=== PATIENT | female | born 2000 | race Caucasian/White ===

== ENCOUNTER 2023-11-14 01:48 | Emergency (ER) | payer OTHER, SELFPAY ==
[2023-11-14 01:48] VITALS: BMI 28.3
[2023-11-14 01:51] VITALS: BP 127/75
--- NOTE | 2023-11-14 01:59 | ED.GENMED ---
History of Present Illness
<GERARDO Matthews - Last Filed: 11/14/23 06:55>
General
Chief Complaint: Problems
Source: patient and family
Exam Limitations: none
Time Seen by Provider: 11/14/23 01:59
History of Present Illness
History of Present Illness:
23 year old female presents for evaluation of a problem. Pt endorses roughly 15 bouts of vomiting daily over the last week. She reports that she is approximately 6 weeks via an at-home test. Pt is seen for routine
gynecology visits at [facility], but has not yet been seen for her presumed , and has not confirmed the in office. No daily medications, vitamins, or supplements. Pt notes that she visited [facility]
earlier in the evening of 11/12 for her current sx, but left before being evaluated due to extensive wait time per pt. Pt was given a Zofran in the waiting room at [facility] but notes that she did not experience any symptom relief and vomited shortly
thereafter. Pt endorses significantly reduced appetite and oral intake with associated 6 pound weight loss over the last week. She also endorses associated chills but denies fever, vaginal discharge or bleeding, hematemesis, bloody stools, diarrhea,
dysuria, and hematuria. No SOB or CP reported.
Review of Systems
<GERARDO Matthews - Last Filed: 11/14/23 06:55>
Review of Systems
Allergies reviewed?: Yes
Constitutional: Reports weight loss and chills
Respiratory: Reports no symptoms
Cardiac: Reports no symptoms
ABD/GI: Reports nausea, vomiting and anorexia
: Reports no symptoms
Musculoskeletal: Reports no symptoms
Skin: Reports no symptoms
Neurological: Reports no symptoms
Endocrine: Reports no symptoms
Hematologic/Lymphatic: Reports no symptoms
Psychiatric: Reports no symptoms
Phy Exam
<GERARDO Matthews - Last Filed: 11/14/23 06:55>
General Physical Exam
General Presentation: moderate distress
General age: appears stated age
General Skin: warm
General Habitus: normal
General Mental: alert
General Hydration: dry mucous membranes
Cardiovascular Exam
Cardiovascular Exam: regular rate/rhythm and no murmur
Pulmonary Exam
Pulmonary Exam: lungs clear and no respiratory distress
Gastrointestinal Exam
Gastrointestinal Exam: other (hyperactive bowel sounds )
Neurological Exam
Neurological Exam: alert and oriented x3
Skin Exam
Skin Exam: normal color and warm/dry
Course
<Rajat Trinidad [facility] - Last Filed: 11/14/23 06:55>
Orders/Labs/Results
Orders:
Orders
11/14/23 02:20
0.9% Sodium Chloride 1000 ml [Nss] 1,000 ml IV BOLUS
Test Result ONCE
11/14/23 02:21
Metoclopramide [Reglan] 10 mg IV NOW STA
11/14/23 02:31
Beta HCG Quantitative Urgent
Comment: ADD ON
Complete Blood Count/With Diff Urgent
Comprehensive Metabolic Panel Urgent
HCG, Serum Qualitative Screen Urgent
11/14/23 02:48
Diphenhydramine [Benadryl] 25 mg IV NOW STA
11/14/23 03:39
Add On- LAB Urgent
Tests Added?: quantitative HCG
11/14/23 03:40
US W Transvaginal Urgent
Reason For Exam: abd pain, vomiting
11/14/23 04:09
0.9% Sodium Chloride 1000 ml [Nss] 1,000 ml IV BOLUS
11/14/23 06:08
Urinalysis Reflex To Culture Urgent
Specimen Description:
Date Specimen was Collected: 11/14/23
Time Specimen was Collected: 06:07
11/14/23 06:16
Ondansetron Injectable [Zofran] 4 mg IV NOW STA
Abnormal Lab Results
11/14/23
02:31
WBC 19.0 H 10^3/uL
(4.8-10.8)
Hct 35.7 L %
(37.0-47.0)
MCV 78.1 L fL
(81.0-99.0)
Abs Immat Gran (auto) 0.1 H 10^3/uL
(0-0.05)
Absolute Neuts (auto) 15.9 H 10^3/uL
(1.4-6.5)
Neutrophils % 83.7 H %
(42.2-75.2)
Lymphocytes % 11.6 L %
(20.5-51.1)
Carbon Dioxide 20 L mmol/L
(22-30)
Glucose 117 H mg/dl
(70-99)
11/14/23 02:31
11/14/23 02:31
Vital Signs
Initial and Last Documented VS:
Initial Vital Signs
Temp Pulse Resp BP Pulse Ox
98.4 F 76 16 127/75 98
11/14/23 01:51 11/14/23 01:51 11/14/23 01:51 11/14/23 01:51 11/14/23 01:51
Last Documented Vital Signs
Temp Pulse Resp BP Pulse Ox
98.5 F 93 18 99/60 98
11/14/23 02:00 11/14/23 04:00 11/14/23 04:00 11/14/23 04:35 11/14/23 04:35
<Ricarda Nevarez, DO - Last Filed: 11/14/23 06:50>
Orders/Labs/Results
Orders:
Orders
11/14/23 02:20
0.9% Sodium Chloride 1000 ml [Nss] 1,000 ml IV BOLUS
Test Result ONCE
11/14/23 02:21
Metoclopramide [Reglan] 10 mg IV NOW STA
11/14/23 02:31
Beta HCG Quantitative Urgent
Comment: ADD ON
Complete Blood Count/With Diff Urgent
Comprehensive Metabolic Panel Urgent
HCG, Serum Qualitative Screen Urgent
11/14/23 02:48
Diphenhydramine [Benadryl] 25 mg IV NOW STA
11/14/23 03:39
Add On- LAB Urgent
Tests Added?: quantitative HCG
11/14/23 03:40
US W Transvaginal Urgent
Reason For Exam: abd pain, vomiting
11/14/23 04:09
0.9% Sodium Chloride 1000 ml [Nss] 1,000 ml IV BOLUS
11/14/23 06:08
Urinalysis Reflex To Culture Urgent
Specimen Description:
Date Specimen was Collected: 11/14/23
Time Specimen was Collected: 06:07
11/14/23 06:16
Ondansetron Injectable [Zofran] 4 mg IV NOW STA
Abnormal Lab Results
11/14/23
02:31
WBC 19.0 H 10^3/uL
(4.8-10.8)
Hct 35.7 L %
(37.0-47.0)
MCV 78.1 L fL
(81.0-99.0)
Abs Immat Gran (auto) 0.1 H 10^3/uL
(0-0.05)
Absolute Neuts (auto) 15.9 H 10^3/uL
(1.4-6.5)
Neutrophils % 83.7 H %
(42.2-75.2)
Lymphocytes % 11.6 L %
(20.5-51.1)
Carbon Dioxide 20 L mmol/L
(22-30)
Glucose 117 H mg/dl
(70-99)
11/14/23 02:31
11/14/23 02:31
Vital Signs
Initial and Last Documented VS:
Initial Vital Signs
Temp Pulse Resp BP Pulse Ox
98.4 F 76 16 127/75 98
11/14/23 01:51 11/14/23 01:51 11/14/23 01:51 11/14/23 01:51 11/14/23 01:51
Last Documented Vital Signs
Temp Pulse Resp BP Pulse Ox
98.5 F 93 18 99/60 98
11/14/23 02:00 11/14/23 04:00 11/14/23 04:00 11/14/23 04:35 11/14/23 04:35
Information
Weeks gestation: Weeks: (6 weeks, 6 days)
Location: Location: (IUP)
<GERARDO Matthews - Last Filed: 11/14/23 06:55>
MDM/Problems Addressed
Differential Diagnosis Includes:
N/V of , hyperemesis gravidarum, gastroenteritis, colitis, cystitis, pyelonephritis.
<GERARDO Matthews - Last Filed: 11/14/23 06:55>
*Critical Care Note
Total Time (30-74mins, 75-104mins- exclusive of procedures): Not Applicable
<Ricarda Nevarez DO - Last Filed: 11/14/23 06:50>
*Radiology
Radiology exam reviewed: radiology read reviewed
*Pulse Oximetry
Patient hypoxic: no
<GERARDO Matthews - Last Filed: 11/14/23 06:55>
Update Note
Update Note:
11/14/2023 06:27 - U/S showing single live intrauterine gestation (6 weeks 6 days gestational age) and small 1.7 cm subchorionic hemorrhage.
ED Attending Note
<GERARDO Matthews - Last Filed: 11/14/23 06:55>
-
Portions of this chart may have been created with voice recognition software.� Occasional wrong word or��sound alike� substitutions may have occurred due to the inherent limitations of voice recognition software.
<Ricarda Nevarez DO - Last Filed: 11/14/23 06:50>
ED Attending Note
Patient seen and examined by attending physician: Yes
I performed the substantive portion of visit, reviewed & personally made and approve the management plan that is documented in note by myself or TIMOTEO.: Yes
ED Attending Note:
This is a 23-year-old female 2 para 0-0-1-0 with last menstrual period the very beginning of September, positive home test. She presents with at least a 1 week history of recurrent nausea and vomiting, much worse over the past 24 hours
reports multiple episodes of bilious vomiting. Intermittent upper abdominal discomfort more so with vomiting. She believes she has lost several pounds this week. She denies fever nor chills, no diarrhea or constipation, no vaginal discharge nor
bleeding.
She does have a warehouse order puller in [facility]. Has not had an initial visit as yet.
She takes no medicines on a daily basis.
She was sitting for a number of hours at [facility], had been given Zofran ODT in the waiting room without improvement in nausea. Due to extended wait, she left prior to physician evaluation and presented to this ED.
GENERAL: 23-year-old female appears her stated age, awake and alert, appears in mild to moderate distress, intermittently retching into an emesis basin. Parents are accompanying.
EYE: pupils equal and round. Anicteric
NECK: Supple, nontender, no meningismus, no significant adenopathy.
ENT: posterior pharynx is clear, oral mucosa is mildly dry. No rhinorrhea.
CARDIAC: Regular rate and rhythm. no murmur.
LUNGS: Clear breath sounds bilaterally, no acute respiratory distress, no wheezes/rales/rhonchi
ABDOMEN: Soft, nondistended, without focal tenderness, no r/g, no cvat. normoactive BS. No palpable masses.
NEUROLOGICAL: Alert and oriented x3, no focal neuro deficits. Gait is steady.
SKIN: Warm and dry, normal color, skin intact. No rash.
MUSCULOSKELETAL: No C/C/E. peripheral pulses are full and equal b/l. No palpable tenderness.
PSYCH: Normal and appropriate interaction.
Concern for hyperemesis gravidarum, concern for electrolyte abnormality, acute kidney injury.
Will initiate IV fluids and given IV dose of Reglan.
Will check labs, urinalysis, hCG and if positive quantitive hCG.
To consider ultrasound.
11/14/2023 0649 AM
Patient feeling markedly improved after IV Reglan and IV fluids. Mild return of nausea thus has been given an IV dose of Zofran with resolution of nausea, tolerating oral fluids well.
Labs show moderately elevated white blood cell count, likely reactive in nature. She remains afebrile.
Chemistries show a minimal metabolic acidosis with CO2 of 20. Normal BUN and creatinine, otherwise normal electrolytes. Normal glucose.
Ultrasound shows single IUP at 6 weeks 6 days, consistent with dates.
Will discharge to home with prescription for oral Reglan for as needed nausea. Recommend she continue with clear liquids, soft foods and prompt follow-up with her warehouse order puller for recheck.
Discharge Plan
Departure
Patient Disposition: Home (Routine Discharge)
Date of Disposition: 11/14/23
Time of Disposition: 06:42
Patient with high blood pressure during this ER visit?: No
Condition: Good
Discharge Problem:
Hyperemesis arising during , First trimester
Instructions: Hyperemesis Gravidarum (DC)
Prescriptions:
New
metoclopramide HCl [Reglan] 5 mg tablet
5 mg PO QIDPRN PRN (Reason: nausea and vomiting) Qty: 30 0RF
Referrals:
NONE,* [Family Provider] -
Activity Restrictions/Additional Instructions:
Call your warehouse order puller today to schedule follow-up appointment.
Interventions
Interventions:
*Risk Screen - Suicide Last Done: 11/14/23 01:51
*General Assessment Last Done: 11/14/23 02:38
*Neglect/Abuse Screening Last Done: 11/14/23 01:51
*ED COVID-19 Vaccine History Last Done: 11/14/23 02:40
ED-Female Genitourinary Assessment Last Done: 11/14/23 02:37
Discharge Date and Time
Print Language: PARAGUAYAN
[2023-11-14 02:00] VITALS: BP 125/72
[2023-11-14 02:21] VITALS: BP 125/72
[2023-11-14] MEDS: NSS 1000 IV ×2 (02:32→04:34)
[2023-11-14] MEDS: REGLAN 10 MG IV (02:35)
[2023-11-14 02:42] LABS: % Basophils 0.3 % (0-2); % Eosinophils 0.5 % (0-6); % Immature Granulocytes 0.5 % (0-0.5); % Lymphocytes 11.6 % (20.5-51.1); % Monocytes 3.4 % (1.7-9.3); % Neutrophils 83.7 % (42.2-75.2); Absolute Basophils 0.1 10^3/uL (0-0.2); Absolute Eosinophils 0.1 10^3/uL (0-0.7); Absolute Immature Granulocytes 0.1 10^3/uL (0-0.05); Absolute Lymphocytes 2.2 10^3/uL (1.2-3.4); Absolute Monocytes 0.6 10^3/uL (0.1-0.6); Absolute Neutrophils 15.9 10^3/uL (1.4-6.5); Hematocrit 35.7 % (37.0-47.0); Hemoglobin 13.2 g/dL (12.0-16.0); Mean Corpuscular Hgb 28.9 pg (27.0-31.0); Mean Corpuscular Volume 78.1 fL (81.0-99.0); Nucleated Red Blood Cells % 0 %; Platelet Count 349 10^3/uL (130-400); Red Blood Cell Count 4.57 10^6/uL (4.20-5.40); Red Cell Dist. Width 12.1 % (11.5-14.5)
[2023-11-14] MEDS: BENADRYL 25 MG IV (02:50)
[2023-11-14 03:03] LABS: HCG, Serum Qualitative Screen Positive
[2023-11-14 03:05] LABS: ALT (SGPT) 16 U/L (0-35); AST (SGOT) 26 U/L (14-36); Alkaline Phosphatase 87 U/L (38-126); Blood Urea Nitrogen 10 mg/dl (7-17); Calcium 10.1 mg/dl (8.4-10.2); Carbon Dioxide 20 mmol/L (22-30); Chloride 105 mmol/L (98-107); Estimated Creatinine Clearance > 125 ml/min; Glucose 117 mg/dl (70-99); Potassium 3.6 mmol/L (3.5-5.1); Sodium 139 mmol/L (135-145); Total Bilirubin 0.7 mg/dl (0.2-1.3); Total Protein 7.8 g/dl (6.3-8.2); eGFR > 60.00
[2023-11-14 04:00] VITALS: BP 99/60
[2023-11-14 04:35] VITALS: BP 99/60
[2023-11-14] MEDS: ZOFRAN 4 MG IV (06:23)
[2023-11-14 06:57] VITALS: BP 99/60
[2023-11-14 07:43] LABS: Urine Albumin Trace (Neg - Trace); Urine Bilirubin 1+ (Negative); Urine Character Clear (Clear); Urine Color Yellow; Urine Glucose Negative (Negative); Urine Ketone 3+ (Negative); Urine Leukocyte Negative (Negative); Urine Nitrite Negative (Negative); Urine Occult Blood Negative (Negative); Urine Urobilinogen Negative (Neg - 1+)
== END 2023-11-14 06:58 | disposition home or self-care (01) ==
LOC: EMR 01:48
PROVIDERS: EMERGENCY PHYSICIAN Emergency Medicine
DX: O21.1 Hyperemesis gravidarum with metabolic disturbance (principal); Z3A.01 Less than 8 weeks gestation of pregnancy; O26.891 Other specified pregnancy related conditions, first trimester; O20.8 Other hemorrhage in early pregnancy; R63.4 Abnormal weight loss; R68.83 Chills (without fever); R10.9 Unspecified abdominal pain
CPT/HCPCS: 99284; 96374; 96375 ×2; 96361 ×5; 76801; 76817; 80053; 81003; 84702; 84703; 85025

== ENCOUNTER 2023-11-17 19:00 | Observation (INO) | payer OTHER, SELFPAY ==
[2023-11-17] VITALS (7 sets, daily range): BP systolic 105–120; BP diastolic 60–81; BMI 24.9; BMI 25.9
--- NOTE | 2023-11-17 11:32 | EDRN ---
Roxy PÉREZ in room w/ pt at this time.
--- NOTE | 2023-11-17 11:43 | ED.GENMED ---
History of Present Illness
General
Chief Complaint: Problems
Source: patient
Exam Limitations: none
Time Seen by Provider: 11/17/23 11:27
Nursing documentation reviewed up to this point in time: agreed with
History of Present Illness
History of Present Illness:
23-year-old female G2, P1 approximately 7 and half weeks confirmed on ultrasound presents for vomiting in . Patient says she was seen here on 7�22 for the symptoms and was given IV Reglan after which she had extraparametal side
effects treated with Benadryl, she was given oral Reglan to take at home but did not really tolerate it well. She had previous Zofran which she has taken 2-3 times a day but at this point she is vomiting immediately after and does not know if she
is absorbing any. Patient says she has not been able to keep any food down, she is able to sometimes keep sips of water down but she feels generally weak and constantly nauseous. Patient has not tried Diclegis. Her first OB appointment was
already with a practice in [place] but she is looking to change. She was not unable to get an appointment until November
She is not having any vaginal bleeding or pelvic pain, urinary symptoms or fever.
Past History
Past History
ED Past Medical History: None
ED Past Surgical History: None
Social History
Tobacco: Non-smoker
Alcohol: None
Drug: None
Personal: Single
Living: with family
Review of Systems
Review of Systems
Allergies reviewed?: Yes
All Other Systems: Not applicable
Phy Exam
Physical Exam
Physical Exam:
GENERAL: Alert , crying tears
EYE: pupils equal and reactive
NECK: Supple
ENT: o/p clr, mmm.
CARDIAC: Regular rate and rhythm . No murmur
LUNGS: Clear breath sounds bilaterally, no acute respiratory distress, no wheezes/rales/rhonchi
ABDOMEN: Soft, without focal tenderness, no r/g, no cvat, normal bowel sounds
NEUROLOGICAL: Alert and oriented, no focal neuro deficits
SKIN: Warm and dry, skin intact.
MUSCULOSKELETAL: No edema, well perfused. neg anuradha's sign
PSYCH: Normal and appropriate interaction.
Course
Orders/Labs/Results
Orders:
Orders
11/17/23 11:29
IV Insert/Care/Rem.- Treatment PRN
Test Result ONCE
11/17/23 11:41
Ondansetron Injectable [Zofran] 4 mg IV NOW STA
11/17/23 11:44
Ondansetron Injectable [Zofran] 4 mg .ROUTE .[facility]
11/17/23 12:00
Comprehensive Metabolic Panel Urgent
Magnesium Urgent
TSH Reflex To Free T4 Urgent
Comment: ADD ON
Dextrose 5%/0.9%Sodchl 1000 ml [D5/0.9% Sodium Chloride] 1,000 ml IV Wide Open mls/hr
11/17/23 12:02
Complete Blood Count/With Diff Urgent
11/17/23 12:04
Urinalysis Reflex To Culture Urgent
Date Specimen was Collected: 11/17/23
Time Specimen was Collected: 12:03
Urine Microscopic Reflex Cult Urgent
11/17/23 12:57
0.9% Sodium Chloride 1000 ml [Nss] 1,000 ml IV BOLUS
Ondansetron Injectable [Zofran] 4 mg IV NOW STA
11/17/23 13:02
0.9% Sodium Chloride 1000 ml [Nss] 1,000 ml IV BOLUS
11/17/23 13:21
Potassium Chloride [KCl] 20 meq 0.9% Sodium Chloride 250 ml [Nss] 250 ml IV NOW
11/17/23 15:28
Add On- LAB Urgent
Tests Added?: tsh reflex t4
11/17/23 16:00
Urinalysis Reflex To Culture Urgent
Date Specimen was Collected: 11/17/23
Time Specimen was Collected: 15:58
11/17/23 16:50
Electrocardiogram (*1) Urgent
Reason for Study: Chest Pain
EKG- Treatment ONCE
Famotidine [Pepcid] 20 mg IV NOW STA
CR Chest - 2 Views Urgent
Comment:
Reason For Exam: vomiting, severe pain
11/17/23 17:00
Dextrose 5%/Lactringers 1000ML [D5lr] 1,000 ml IV 1,000 mls/hr
11/17/23 18:31
Admit/Transfer Patient As Directed
Co-Sign Provider:
Level of Care: Observation services
Assign to:: Medical/Surgical
Physician / Group: [facility]
Diagnosis: hyperemesis
11/17/23 18:34
Code Status As Directed
Resuscitation Status: Full Code
11/17/23 18:41
Calcium Carbonate Ex [Tums Ex (Extra Strength) Chewable] 2 tablet PO Q4HPRN PRN
11/17/23 19:00
Dextrose 5%/Lactringers 1000ML [D5lr] 1,000 ml Mvi, Adult [Multivitamin] 10 ml IV 125 mls/hr
Dextrose 5%/Lactringers 1000ML [D5lr] 1,000 ml IV Wide Open mls/hr
11/18/23 03:10
Dextrose 5%/Lactringers 1000ML [D5lr] 1,000 ml IV 125 mls/hr
Abnormal Lab Results
11/17/23 11/17/23 11/17/23
12:00 12:02 12:04
WBC 20.4 H 10^3/uL
(4.8-10.8)
Plt Count 439 H D 10^3/uL
(130-400)
Abs Immat Gran (auto) 0.1 H 10^3/uL
(0-0.05)
Absolute Neuts (auto) 17.7 H 10^3/uL
(1.4-6.5)
Absolute Monos (auto) 1.0 H 10^3/uL
(0.1-0.6)
Immature Gran % 0.6 H %
(0-0.5)
Neutrophils % 86.5 H %
(42.2-75.2)
Lymphocytes % 7.7 L %
(20.5-51.1)
Potassium 3.4 L mmol/L
(3.5-5.1)
Chloride 97 L mmol/L
(98-107)
Glucose 109 H mg/dl
(70-99)
Calcium 10.4 H mg/dl
(8.4-10.2)
Total Protein 8.5 H g/dl
(6.3-8.2)
Albumin 5.6 H g/dl
(3.5-5.0)
Urine Ketones 3+ A
(Negative)
Urine Bilirubin 1+ A
(Negative)
Leukocyte Esterase Rfl Trace A
(Negative)
Urine Bacteria (Reflex) Few A
(Negative)
11/17/23
16:00
WBC
Plt Count
Abs Immat Gran (auto)
Absolute Neuts (auto)
Absolute Monos (auto)
Immature Gran %
Neutrophils %
Lymphocytes %
Potassium
Chloride
Glucose
Calcium
Total Protein
Albumin
Urine Ketones 3+ A
(Negative)
Urine Bilirubin
Leukocyte Esterase Rfl
Urine Bacteria (Reflex)
11/17/23 12:02
11/17/23 12:00
Vital Signs
Initial and Last Documented VS:
Initial Vital Signs
Temp Pulse Resp BP Pulse Ox
98.5 F 98 16 120/81 99
11/17/23 10:44 11/17/23 10:44 11/17/23 10:44 11/17/23 10:44 11/17/23 10:44
Last Documented Vital Signs
Temp Pulse Resp BP Pulse Ox
98.5 F 76 16 114/62 100
11/17/23 10:44 11/17/23 17:15 11/17/23 17:15 11/17/23 17:15 11/17/23 17:15
Information
Weeks gestation: Weeks: (7)
Location: Location: (Intrauterine)
MDM/Problems Addressed
Differential Diagnosis Includes:
hyperemesis, electrolyte disturbance
MDM/Problems Addressed:
23-year-old approximately 7 weeks with IUP confirmed 3 days ago here for hyperemesis. Patient cannot keep any fluids down. She is constantly retching. There is been flecks of blood in her sputum and emesis sometimes. She has not
had any large-volume bleeding. Patient says she feels generally weak and tired. She is not having any vaginal symptoms, bleeding, pelvic pain, focal abdominal pain. On exam she did not appear overly dehydrated but was having episodes of clear
emesis, sometimes saliva that she would spit up and other times was retching with gastric secretions. Patient had no abdominal tenderness. She has had a leukocytosis previously 3 days ago of 19,000 and it was essentially unchanged at 20,000 today.
Patient's potassium was 3.4, magnesium was normal, her bicarb was normal. Patient did have 3+ ketones in her urine which appeared does also appear contaminated. She was given a liter of D5 normal, a total of 8 mg of Zofran, and a second and third
liter of normal saline. She was continuing to vomit through that. I spoke with Dr. krueger from [facility] who did recommend Diclegis as an outpatient or potentially setting the patient up for IV hydration at home. However patient began complaining of
pretty significant dyspepsia, feeling of burning and discomfort in her chest. Given her leukocytosis I felt the benefit outweighed the risk of a chest x-ray to be sure there was no pneumomediastinum. Her chest x-ray was independently reviewed and
negative. Patient's EKG is also unremarkable, her QTc is 440. Dr. Krueger saw her and we will observe her overnight for IV hydration
*Critical Care Note
Total Time (30-74mins, 75-104mins- exclusive of procedures): Not Applicable
ED Attending Note
-
Portions of this chart may have been created with voice recognition software.� Occasional wrong word or��sound alike� substitutions may have occurred due to the inherent limitations of voice recognition software.
Discharge Plan
Departure
Patient Disposition: Admit
Date of Disposition: 11/17/23
Time of Disposition: 16:58
Admit to: Med/Surg
Admit to doctor: evans
Presentation/result/management discussed w/ accepting MD/DO: evans
Patient with high blood pressure during this ER visit?: No
Condition: Fair
Covid-19: Not Applicable
Discharge Problem:
Hyperemesis gravidarum, Dyspepsia
Interventions
Interventions:
*Risk Screen - Suicide Last Done: 11/17/23 12:13
*General Assessment Last Done: 11/17/23 10:44
*Neglect/Abuse Screening Last Done: 11/17/23 12:13
ED- Fall Risk Assessment Last Done: 11/17/23 12:13
*ED COVID-19 Vaccine History Last Done: 11/17/23 10:44
ED-Female Genitourinary Assessment Last Done: 11/17/23 12:13
[2023-11-17] MEDS: D5/0.9% SODIUM CHLORIDE 1000 IV (11:57)
[2023-11-17] MEDS: ZOFRAN 4 MG IV ×3 (11:58→19:54)
[2023-11-17 12:16] LABS: Urine Albumin Trace (Neg - Trace); Urine Bilirubin 1+ (Negative); Urine Character Clear (Clear); Urine Color Yellow; Urine Glucose Negative (Negative); Urine Ketone 3+ (Negative); Urine Leukocyte Trace (Negative); Urine Nitrite Negative (Negative); Urine Occult Blood Negative (Negative); Urine Specific Gravity 1.025 (<1.030); Urine Urobilinogen 1+ (Neg - 1+)
[2023-11-17 12:17] LABS: % Basophils 0.3 % (0-2); % Immature Granulocytes 0.6 % (0-0.5); % Lymphocytes 7.7 % (20.5-51.1); % Monocytes 4.9 % (1.7-9.3); % Neutrophils 86.5 % (42.2-75.2); Absolute Basophils 0.1 10^3/uL (0-0.2); Absolute Immature Granulocytes 0.1 10^3/uL (0-0.05); Absolute Lymphocytes 1.6 10^3/uL (1.2-3.4); Absolute Neutrophils 17.7 10^3/uL (1.4-6.5); Hematocrit 43.6 % (37.0-47.0); Hemoglobin 15.8 g/dL (12.0-16.0); Mean Corp Hgb Conc. 36.2 g/dL (33.0-37.0); Mean Corpuscular Hgb 29.4 pg (27.0-31.0); Mean Corpuscular Volume 81.2 fL (81.0-99.0); Mean Platelet Volume 9.3 fL (7.4-10.4); Nucleated Red Blood Cells % 0 %; Platelet Count 439 10^3/uL (130-400); Red Blood Cell Count 5.37 10^6/uL (4.20-5.40); Red Cell Dist. Width 12.2 % (11.5-14.5); White Blood Cell Count 20.4 10^3/uL (4.8-10.8)
[2023-11-17 12:22] LABS: Urine Mucus Moderate; Urine Squamous Cell 16-20 /LPF (Few)
[2023-11-17 12:23] LABS: Urine Bacteria Few (Negative); Urine Red Blood Cell 0-2 /HPF (0-2)
[2023-11-17 12:30] LABS: ALT (SGPT) 19 U/L (0-35); AST (SGOT) 25 U/L (14-36); Albumin 5.6 g/dl (3.5-5.0); Alkaline Phosphatase 87 U/L (38-126); Blood Urea Nitrogen 10 mg/dl (7-17); Calcium 10.4 mg/dl (8.4-10.2); Carbon Dioxide 27 mmol/L (22-30); Chloride 97 mmol/L (98-107); Estimated Creatinine Clearance 99 ml/min; Glucose 109 mg/dl (70-99); Magnesium 2.1 mg/dl (1.6-2.3); Potassium 3.4 mmol/L (3.5-5.1); Sodium 138 mmol/L (135-145); Total Bilirubin 0.9 mg/dl (0.2-1.3); Total Protein 8.5 g/dl (6.3-8.2); eGFR > 60.00
[2023-11-17] MEDS: NSS 1000 IV ×2 (13:06→13:50)
--- NOTE | 2023-11-17 13:13 | EDRN ---
Pharmacist called and will get potassium rider 20 meq KCl at this time.
--- NOTE | 2023-11-17 13:13 | EDRN ---
Pt still having nausea at this time.
[2023-11-17] MEDS: KCL 260 MEQ IV (13:42)
--- NOTE | 2023-11-17 15:05 | EDRN ---
Pt states nausea has returned and is vomiting again.
--- NOTE | 2023-11-17 15:07 | EDRN ---
Roxy PÉREZ called and said she will speak to OB-MANAGER STUDIO about pt's return on N/V at this time.
--- NOTE | 2023-11-17 15:39 | EDRN ---
Roxy Hairston spoke to OB-COSTUME RENTAL CLERK Dr. Arevalo and need another urine test and Roxy Hairston PA said okay for pt to try juarez rodri and ice chips which were administered at this time. Pt informed that a second urine spec is needed as well.
[2023-11-17 16:13] LABS: Urine Albumin Negative (Neg - Trace); Urine Bilirubin Negative (Negative); Urine Character Clear (Clear); Urine Color Yellow; Urine Glucose Negative (Negative); Urine Ketone 3+ (Negative); Urine Leukocyte Negative (Negative); Urine Nitrite Negative (Negative); Urine Occult Blood Negative (Negative); Urine Specific Gravity 1.015 (<1.030); Urine Urobilinogen Negative (Neg - 1+)
--- NOTE | 2023-11-17 16:45 | EDRN ---
Roxy Hairston PA in to see pt. Pt to be admitted.
[2023-11-17] MEDS: PEPCID 20 MG IV (17:10)
--- NOTE | 2023-11-17 17:15 | EDRN ---
Addendum entered by Jenny Mercedes RN 11/17/23 18:20:
Not Dr. Arevalo but Dr. Villagran.
Original Note:
Dr. Arevalo in to see pt at this time.
[2023-11-17 17:20] LABS: TSH Reflex To Free T4 0.68 uIU/ml (0.47-4.68)
--- NOTE | 2023-11-17 17:30 | EDRN ---
Pt eating slowly small bag of crackers at this time. pt given her second cup of ice chips. Pt did not drink juarez rodri.
[2023-11-17] MEDS: D5LR 1000 IV (18:16)
--- NOTE | 2023-11-17 18:20 | EDRN ---
Pt is in room eating crackers from small bag still. Pt has coca cola bottle in room and when asked said that HCP said it had helped them when and that person had had hyperemesis gravidarum.
--- NOTE | 2023-11-17 18:20 | EDRN ---
Dr. Villagran in room w/pt at this time.
--- NOTE | 2023-11-17 18:21 | EDRN ---
Pt requesting private room w/ pharmacist in charge notified as well as admissions. Pt stating she will leave if she is assigned a semi-private room due to anxiety of hospital stay.
--- NOTE | 2023-11-17 18:28 | EDRN ---
Dr. Villagran is writing orders at this time.
--- NOTE | 2023-11-17 18:40 | EDRN ---
Pt requested an apple sauce to try and eat that was brought to her room at this time.
--- NOTE | 2023-11-17 19:06 | HP.FOC2 ---
Focused History & Physical
Chief Complaint
HPI:
Chief Complaint: 23 yo at 7 wks presents to ER for the 2nd time for intractable vomiting. desired [facility] observed in er for several hours and ketones remain 3+
HPI / Indication for Planned Procedure:
Relevant Past Medical History: Negative and Other (blood type O neg, denies pap, denies gardasil)
Relevant Social History: Negative
Relevant Family History: Positive for (pat aunt colon ca, pat gm lung ca, no fh breast, ov ut ca)
Relevant Past Surgical History: Positive for (El ab)
Review of Systems
Review of Pertinent Systems: All Systems Negative Except for the Following Positives (anxiety, severe no meds, no therapy)
Medication
See Medication form for detailed medications: No
Medication List (including Herbals & OTC):
No Meds [No Current Medications] 11/17/23
Allergies and Reactions
Patient has Allergies: No
Noted Allergies and Reactions:
Allergy/AdvReac Type Severity Reaction Status Date / Time
No Known Allergies Allergy Verified 11/17/23 10:47
Pertinent Physical Exam
All Other Systems: Negative
Head/Neck: Normal
Lungs: Normal
Heart: Normal
Abdomen: Normal
Extremities: Normal
Diagnosis / Assessment
7+ wks
hyperemesis gravidarum
Plan / Procedure
admit obs for ivf
iv zofran, phenergan prn
advance diet as tolerated
one amp PNV in d5 LR
check ua for ketones in am
leucocytosis: cxr neg
US reviewed: fht confirmed. subchorionic bleed reviewed. no vaginal bleeding
if unable to roni pos, unable to clear ketones t/c home iv rx
face to face time 25 min
[2023-11-17] MEDS: MULTIVITAMIN 1010 ML IV (19:55)
--- NOTE | 2023-11-17 20:10 | PTCARENOTE ---
Pt received from ED to rm [id number]. Pt oriented to room and call cary.
[2023-11-17] MEDS: PHENERGAN 50.5 MG IV (21:04)
[2023-11-18] MEDS: D5LR 1000 IV (04:14)
[2023-11-18] MEDS: PHENERGAN 50.5 MG IV (06:26)
[2023-11-18 06:49] LABS: Urine Albumin Negative (Neg - Trace); Urine Bilirubin Negative (Negative); Urine Character Clear (Clear); Urine Color Yellow; Urine Glucose Negative (Negative); Urine Ketone Negative (Negative); Urine Leukocyte Negative (Negative); Urine Nitrite Negative (Negative); Urine Occult Blood Negative (Negative); Urine Urobilinogen Negative (Neg - 1+)
[2023-11-18 07:35] VITALS: BP 104/59
[2023-11-18] MEDS: ZOFRAN 4 MG IV (09:52)
--- NOTE | 2023-11-18 10:44 | W.PN.OBG.DWH ---
Today's Communication / Plan
-
dc home
Recommend follow up with OB office
Assessment/Plan
-
7 wks
hyperemesis-significantly improved and patient requesting discharge home
Subjective Data
-
Pt requesting discharge. Reports feeling better and wants to go home.
Abdias clears and regular food
Ate [employer] hashbrowns and breakfast sandwich this am and tolerated.
[place] better after Iv promethazine
Objective Data
-
Laboratory Results
11/17/23 12:02
11/17/23 12:00
Vital Signs
Temp Pulse Resp BP Pulse Ox
98.1 F 81 16 104/59 99
11/18/23 07:35 11/18/23 07:35 11/18/23 07:35 11/18/23 07:35 11/18/23 07:35
VSS afeb
Urine ketone neg
--- NOTE | 2023-11-18 11:27 | PTCARENOTE ---
Discharge order placed. IV site removed. Discharge instructions reviewed with patient. No further questions. Pt ambulated from hospital with mother.
--- NOTE | 2023-11-18 14:09 | CM ---
Chart reviewed and patient is independent with adl's and ambulation, no dme, plan is to home today no needs.
Plan; Home no needs.
== END 2023-11-18 11:31 | disposition home or self-care (01) ==
LOC: 4 WEST ACU 19:00
PROVIDERS: Physician Assistant; ADMITTING PHYSICIAN Obstetrics & Gynecology; EMERGENCY PHYSICIAN Emergency Medicine
DX: O21.0 Mild hyperemesis gravidarum (principal); Z3A.01 Less than 8 weeks gestation of pregnancy; O99.891 Other specified diseases and conditions complicating pregnancy; O26.891 Other specified pregnancy related conditions, first trimester; R07.9 Chest pain, unspecified; R53.1 Weakness; R10.13 Epigastric pain; Z80.0 Family history of malignant neoplasm of digestive organs; Z80.1 Family history of malignant neoplasm of trachea, bronchus and lung
CPT/HCPCS: 71046; 80053; 81003; 81015; 83735; 84443; 85025; 86850; 86900; 86901; 87070; 93005; 96361; 96365; 96366; 96375; 96376; 99285; G0378

== ENCOUNTER 2025-01-13 13:11 | Emergency (ER) | payer OTHER, SELFPAY ==
[2025-01-13 13:44] LABS: Hematocrit 38.0 % (37.0-47.0); Hemoglobin 12.5 g/dL (12.0-16.0); Mean Corp Hgb Conc. 32.9 g/dL (33.0-37.0); Mean Corpuscular Volume 75.8 fL (81.0-99.0); Nucleated Red Blood Cells % 0 %; Platelet Count 387 10^3/uL (130-400); Red Cell Dist. Width 13.0 % (11.5-14.5)
[2025-01-13 13:47] LABS: HCG, Serum Qualitative Screen Negative
[2025-01-13 14:02] LABS: Blood Urea Nitrogen 13 mg/dl (7-17); Calcium 9.6 mg/dl (8.4-10.2); Carbon Dioxide 18 mmol/L (22-30); Chloride 104 mmol/L (98-107); Glucose 97 mg/dl (70-99); Sodium 139 mmol/L (135-145); eGFR > 60.00
[2025-01-13] MEDS: DECADRON 10 MG IV (15:03)
[2025-01-13] MEDS: TORADOL 15 MG IV (15:04)
--- NOTE | 2025-01-13 15:09 | ED.GENMED ---
History of Present Illness
General
Chief Complaint: Throat Problem
Time Seen by Provider: 01/13/25 13:40
History of Present Illness
History of Present Illness:
24-year-old female presents to the emergency department for evaluation of not improving pharyngitis for the past week. Initially developed symptoms 8 days ago and was seen at urgent care, diagnosed with strep but positive rapid strep test. She
returned 3 days later after antibiotics are not providing any benefit that she was switched from amoxicillin to clindamycin. She also reportedly had COVID, flu, and mono testing done that was negative. She was also given an injection of Kenalog.
She has been compliant with the clindamycin and followed up again with her urgent care 2 days ago due to worsening symptoms. Continues on clindamycin at this time. She does note that she is concerned for possible infidelity and wonders whether an
STD could be causing her symptoms. She has had intermittent fevers and difficulty swallowing as well
Past History
Past History
ED Past Medical History: None
ED Past Surgical History: None
Social History
Tobacco: Non-smoker
Alcohol: None
Drug: None
Personal: Single
Living: with family
Review of Systems
Review of Systems
Allergies reviewed?: Yes
All Other Systems: ROS reviewed and negative except as documented in HPI and ROS
Phy Exam
Physical Exam
Physical Exam:
GEN: Well appearing, NAD, WDWN
HEENT: Oral mucosa moist, no scleral icterus, significant exudates in the oropharynx as well as tonsils, no significant tonsillar hypertrophy, no palatal petechiae, no uvular deviation or soft palate mass, no stridor or phonation, positive cervical
adenopathy bilaterally
Cardiac: Tachycardic, regular
Lung: No respiratory distress, no tachypnea
MSK: No gross deformity or injuries
Skin: Good color, no pallor or jaundice, no rashes
Neuro: AO x3, moves all extremities freely
Psych: Calm, cooperative
Course
Orders/Labs/Results
Orders:
Orders
01/13/25 13:22
Electrocardiogram (*1) Urgent
Reason for Study: Other
Other Reason for Exam: Possible Sepsis
IV Insert/Care/Rem.- Treatment PRN
01/13/25 13:23
EKG- Treatment ONCE
Test Result ONCE
01/13/25 13:28
Basic Metabolic Panel Urgent
Complete Blood Count/With Diff Urgent
HCG, Serum Qualitative Screen Urgent
Comment: Notify provider if positive test present
Monotest Urgent
Comment: ADD ON
01/13/25 13:46
Add On- LAB Urgent
Tests Added?: monotest
01/13/25 14:11
Miscellaneous Order As Directed
Miscellaneous order: Chlamydia Trachomatis TMA
01/13/25 14:24
GC Culture Urgent
KASI Source: Throat/Pharynx
Specimen Description:
Date Specimen was Collected: 01/13/25
Time Specimen was Collected: 14:19
01/13/25 14:48
Add On- LAB Urgent
Tests Added?: Chlamydia TMA (Throat)
01/13/25 14:52
Dexamethasone Sod Phosphate [Decadron] 10 mg IV NOW STA
Ketorolac [Toradol] 15 mg IV NOW STA
01/13/25 15:11
Azithromycin [Zithromax] 1,000 mg PO NOW STA
Ceftriaxone Sodium [Rocephin] 500 mg IM NOW STA
01/13/25 15:14
Lidocaine HCl/Pf [Xylocaine-Mpf 1% Vial] 50 mg .ROUTE .STK-MED ONE
Abnormal Lab Results
01/13/25
13:28
WBC 12.3 H 10^3/uL
(4.8-10.8)
MCV 75.8 L fL
(81.0-99.0)
MCH 25.0 L pg
(27.0-31.0)
MCHC 32.9 L g/dL
(33.0-37.0)
Abs Immat Gran (auto) 0.2 H 10^3/uL
(0-0.05)
Absolute Neuts (auto) 8.0 H 10^3/uL
(1.4-6.5)
Absolute Monos (auto) 0.8 H 10^3/uL
(0.1-0.6)
Immature Gran % 1.2 H %
(0-0.5)
Carbon Dioxide 18 L mmol/L
(22-30)
01/13/25 13:28
01/13/25 13:28
Vital Signs
Initial and Last Documented VS:
Initial Vital Signs
Temp Pulse Resp BP Pulse Ox
98.7 F 131 18 137/98 98
01/13/25 13:16 01/13/25 13:16 01/13/25 13:16 01/13/25 13:16 01/13/25 13:16
Last Documented Vital Signs
Temp Pulse Resp BP Pulse Ox
99.1 F 106 16 119/76 100
01/13/25 14:30 01/13/25 14:30 01/13/25 14:30 01/13/25 14:30 01/13/25 15:10
MDM/Problems Addressed
MDM/Problems Addressed:
Given patient's reports of high risk sexual activity of her partner will send gonorrhea and chlamydia throat swabs and treat empirically for this, she will stay on clindamycin and will add a tapering steroid dose. There is no clinical evidence of
retropharyngeal or peritonsillar abscess and Monospot test is negative. She is maintaining her secretions and labs are reassuring, suitable for continued outpatient management. Oral thrush was considered as well however she has no patches of
tongue and the fact that the oral exudates were noted on day 1 or 2 of illness before antibiotics were initiated is reassuring against fungal infection
*Pulse Oximetry
SaO2: 100
Oxygen Mode of Delivery: Room air
Patient hypoxic: no
*Critical Care Note
Total Time (30-74mins, 75-104mins- exclusive of procedures): Not Applicable
ED Attending Note
-
Portions of this chart may have been created with voice recognition software.� Occasional wrong word or��sound alike� substitutions may have occurred due to the inherent limitations of voice recognition software.
Discharge Plan
Departure
Patient Disposition: Home (Routine Discharge)
Date of Disposition: 01/13/25
Time of Disposition: 15:09
Patient with high blood pressure during this ER visit?: No
Discharge Problem:
Exudative pharyngitis
Instructions: Strep Throat (DC)
Prescriptions:
New
methylprednisolone [Medrol (Doron)] 4 mg tablets,dose pack
See Rx Instructions .ROUTE .COMPLEX Qty: 21 0RF
Rx Instructions:
orally per package directions
No Action
clindamycin HCl 300 mg Capsule
300 mg PO Q6H
Rx Instructions:
started on 01/08/25
Referrals:
Olive Jennings, DO [Primary Care Provider, Family Practice]
NONE,* [Family Provider, Internal Medicine]
Interventions
Interventions:
*Risk Screen - Suicide Last Done: 01/13/25 13:16
*General Assessment Last Done: 01/13/25 14:20
*Neglect/Abuse Screening Last Done: 01/13/25 13:16
*ED- Fall Risk Assessment Last Done: 01/13/25 13:16
*ED COVID-19 Vaccine History Last Done: 01/13/25 14:20
*Nursing Disposition Last Done: 01/13/25 15:33
ED-EENT Assessment Last Done: 01/13/25 15:10
ED- Pulmonary Assessment Last Done: 01/13/25 15:10
Discharge Date and Time
Discharge Date/Time: 01/13/25 15:34
Print Language: QATARI
[2025-01-13] MEDS: ROCEPHIN 500 MG IM (15:26)
[2025-01-13] MEDS: ZITHROMAX 1000 MG PO (15:26)
== END 2025-01-13 15:34 | disposition home or self-care (01) ==
LOC: EMR 13:11
PROVIDERS: Physician Assistant; Student in an Organized Health Care Education/Training Program; EMERGENCY PHYSICIAN Emergency Medicine; PRIMARYCARE PHYSICIAN Family Medicine
DX: J02.9 Acute pharyngitis, unspecified (principal); R13.10 Dysphagia, unspecified
CPT/HCPCS: 96372; 96374; 96375; 99284; 80048; 84703; 85025; 86308; 87081; 87491; 87591; 93005